=== PATIENT | male | born 1960 | race American Indian/Alaskan Native ===

== ENCOUNTER 2017-09-14 09:41 | Inpatient (IN) | payer SELFPAY ==
[2017-09-14] MEDS ORDERED: ASPIRIN PO ONE (09:53)
[2017-09-14 10:36] LABS: Basophils # (Auto) 0.1 K/mm3 (0.0-0.1); Basophils % (Auto) 0.8 % (0.0-1.8); Eosinophils # (Auto) 0.3 K/mm3 (0.0-0.4); Eosinophils % (Auto) 2.6 % (0.0-4.3); Hematocrit 48.4 % (35.5-45.6); Hemoglobin 16.3 gm/dl (11.8-15.2); Lymphocytes # (Auto) 3.6 K/mm3 (1.2-5.4); Lymphocytes % (Auto) 32.8 % (13.4-35.0); Mean Corpuscular HGB Conc 34 % (32-34); Mean Corpuscular Hemoglobin 32 pg (28-32); Mean Corpuscular Volume 95 fl (84-94); Monocytes # (Auto) 1.2 K/mm3 (0.0-0.8); Monocytes % (Auto) 10.8 % (0.0-7.3); Platelet Count 304 K/mm3 (140-440); Red Blood Count 5.08 M/mm3 (3.65-5.03); Red Cell Distribution Width 13.3 % (13.2-15.2)
[2017-09-14 10:42] LABS: BUN/Creatinine Ratio 9; Blood Urea Nitrogen 7 mg/dL (9-20); Calcium 9.1 mg/dL (8.4-10.2); Hemolysis Index 23
[2017-09-14] MEDS ORDERED: CATAPRES PO ONE (10:43)
[2017-09-14] MEDS ORDERED: NITRO-BID 2% TP ONE (10:43)
[2017-09-14 10:50] LABS: INR 0.9 (0.87-1.13)
[2017-09-14 10:51] LABS: Partial Thromboplastin Time 28.6 Sec. (24.2-36.6)
--- NOTE | 2017-09-14 10:53 | Emergency Department Report ---
HPI - General Chief Complaint: High BP Time Seen by Provider: 09/14/17 10:33 - HPI HPI: Room 4 The patient is a 57-year-old male presented with a chief complaint of chest pain. The patient states for the past 2 days he's had intermittent pulling substernal chest pain associated with diaphoresis. The patient states he's been out of his blood pressure medication past 3 months. Patient denies shortness of breath nausea or vomiting. The patient states at times he has numbness of his right upper extremity with the chest pain. The patient states he's never had a stress test or cardiac catheterization Location: Chest Duration: Intermittent 2 days Quality: Pulling Severity: Currently is 0/10 Modifying factors: [see above] Context: [see above] Mode of transportation: Unknown ED Past Medical Hx - Past Medical History Previous Medical History?: Yes Hx Hypertension: Yes - Surgical History Past Surgical History?: No - Family History Family history: no significant - Social History Smoking Status: Current Every Day Smoker (1/4 pack per day) Substance Use Type: None (denies illicit drug use) ED Review of Systems ROS: Stated complaint: C/P,BP Other details as noted in HPI Constitutional: diaphoresis Eyes: denies: eye pain ENT: denies: throat pain Respiratory: denies: shortness of breath Cardiovascular: chest pain Gastrointestinal: denies: abdominal pain, nausea, vomiting Genitourinary: denies: dysuria Musculoskeletal: denies: back pain Neurological: paresthesias. denies: headache Physical Exam - Physical Exam Vital Signs: Vital Signs 09/14/17 09:49 Temperature 98.5 F Pulse Rate 71 Respiratory 20 Rate Blood Pressure 198/103 O2 Sat by Pulse 99 Oximetry Physical Exam: GENERAL: The patient is well-developed well-nourished male lying on stretcher not appearing to be in acute distress. [] HEENT: Normocephalic. Atraumatic. Extraocular motions are intact. Patient has moist mucous membranes. NECK: Supple. Trachea midline CHEST/LUNGS: Clear to auscultation. There is no respiratory distress noted. HEART/CARDIOVASCULAR: Regular. There is no tachycardia. There is no gallop rub or murmur. 2+ right radial pulse ABDOMEN: Abdomen is soft, nontender. Patient has normal bowel sounds. There is no abdominal distention. SKIN: There is no rash. There is no edema. There is no diaphoresis. NEURO: The patient is awake, alert, and oriented. The patient is cooperative. The patient has normal speech MUSCULOSKELETAL: There is no evidence of acute injury. ED Course Vital Signs 09/14/17 09:49 Temperature 98.5 F Pulse Rate 71 Respiratory 20 Rate Blood Pressure 198/103 O2 Sat by Pulse 99 Oximetry - Consultations Consultation #1: 09/14/17 11:[address] Kc at 10:31- no STEMI. Appears to be J-point elevation anteriorly ED Medical Decision Making - Lab Data Result diagrams: 09/14/17 10:10 09/14/17 10:10 Laboratory Tests 09/14/17 09/14/17 09/14/17 10:10 10:10 10:10 WBC 10.9 RBC 5.08 H Hgb 16.3 H Hct 48.4 H MCV 95 H MCH 32 MCHC 34 RDW 13.3 Plt Count 304 Lymph % (Auto) 32.8 [place] % (Auto) 10.8 H Eos % (Auto) 2.6 Baso % (Auto) 0.8 Lymph # 3.6 [place] # 1.2 H Eos # 0.3 Baso # 0.1 Seg Neutrophils % 53.0 Seg Neutrophils # 5.8 PT 12.6 INR 0.90 APTT 28.6 Sodium 141 Potassium 4.2 Chloride 101.9 Carbon Dioxide 27 Anion Gap 16 BUN 7 L Creatinine 0.8 Estimated GFR > 60 BUN/Creatinine Ratio 9 Glucose 96 Calcium 9.1 Troponin T < 0.010 - EKG Data -: EKG Interpreted by Me EKG shows normal: sinus rhythm Rate: bradycardia (57 bpm) - EKG Data When compared to previous EKG there are: previous EKG unavailable Interpretation: nonspecific ST-T wave gasper (J-point elevation) - Radiology Data Radiology results: image reviewed (chest x-ray) interpreted by me: Chest x-ray-no focal infiltrates, no pneumothorax - Differential Diagnosis ACS, pericarditis, GERD Critical care attestation.: If time is entered above; I have spent that time in minutes in the direct care of this critically ill patient, excluding procedure time. ED Disposition Clinical Impression: Chest pain, Hypertensive urgency Disposition: OP ADMIT IP TO THIS HOSP Is pt being admited?: Yes Does the pt Need Aspirin: Yes Condition: Fair Instructions: Chest Pain (ED) Referrals: PRIMARY CARE, [Primary Care Provider] - 3-5 Days Time of Disposition: 11:07 (hospitalist paged (Dr Sanchez))
--- NOTE | 2017-09-14 11:12 | XRay Report ---
AP CHEST: HISTORY: chest pain AP view of the chest demonstrates a normal mediastinal and cardiac contour with clear lungs and normal bony and soft tissue structures. IMPRESSION: Unremarkable AP chest.
[2017-09-14 14:05] VITALS: BP 166/94
== END 2017-09-14 14:32 | disposition left against medical advice (07) | DRG 313 ==
LOC: ED 09:41 → 4A 11:19
PROVIDERS: ADMIT Internal Medicine; ATTEND Internal Medicine
DX: R07.9 Chest pain, unspecified (principal); I10 Essential (primary) hypertension; F17.200 Nicotine dependence, unspecified, uncomplicated; I16.0 Hypertensive urgency
CPT/HCPCS: 36415; 71045; 80048; 84484; 85025; 85610; 85730; 93005; 93010